=== PATIENT | female | born 1985 | race Caucasian/White ===

== ENCOUNTER 2019-04-10 23:48 | Emergency (ER) | payer MEDICARE ==
[~2019-04-10] VITALS: Ht 188 cm; Wt 118.3 kg
[~2019-04-10 23:48] MED LIST: CETI1TAB2; CPR500T PO; MULT-68; OMEP-10
[2019-04-11 00:31] LABS: BASOPHILS % (AUTO) 0 % (0-10); EOSINOPHILS # (AUTO) 0.1 10^3/uL (0.0-0.3); EOSINOPHILS % (AUTO) 1 % (0-10); HEMATOCRIT 40 % (35-52); HEMOGLOBIN 12.9 G/DL (11.5-16.0); LYMPHOCYTES # (AUTO) 1.7 X 10^3 (1.0-4.0); LYMPHOCYTES % (AUTO) 9 % (12-44); MEAN CORPUSCULAR HEMOGLOBIN 26 PG (25-34); MEAN CORPUSCULAR HGB CONC 32 G/DL (32-36); MEAN CORPUSCULAR VOLUME 82 FL (80-99); MEAN PLATELET VOLUME 11.1 FL (7.4-10.4); MONOCYTES # (AUTO) 1.4 X 10^3 (0.0-1.0); MONOCYTES % (AUTO) 7 % (0-12); NEUTROPHILS # (AUTO) 16.2 X 10^3 (1.8-7.8); NEUTROPHILS % (AUTO) 83 % (42-75); PLATELET COUNT 417 10^3/uL (130-400); RED CELL DISTRIBUTION WIDTH 14.1 % (10.0-14.5); WHITE BLOOD COUNT 19.4 10^3/uL (4.3-11.0)
[2019-04-11 00:40] LABS: BILIRUBIN,URINE NEGATIVE (NEGATIVE); CLARITY,URINE CLEAR; COLOR,URINE YELLOW; GLUCOSE, URINE (UA) NEGATIVE (NEGATIVE); KETONES,URINE NEGATIVE (NEGATIVE); LEUKOCYTE ESTERASE ,URINE NEGATIVE (NEGATIVE); NITRITE,URINE NEGATIVE (NEGATIVE); PROTEIN,URINE NEGATIVE (NEGATIVE)
[2019-04-11 00:44] LABS: ALANINE AMINOTRANSFERASE 12 U/L (0-55); ALBUMIN 3.8 GM/DL (3.2-4.5); ALKALINE PHOSPHATASE 79 U/L (40-136); BILIRUBIN,TOTAL 0.2 MG/DL (0.1-1.0); BUN/CREATININE RATIO 18; CALCIUM 9.5 MG/DL (8.5-10.1); CARBON DIOXIDE 20 MMOL/L (21-32); CHLORIDE 105 MMOL/L (98-107); GFR ESTIMATED > 60; GLUCOSE 122 MG/DL (70-105); POTASSIUM 4.5 MMOL/L (3.6-5.0); SODIUM 138 MMOL/L (135-145); TOTAL PROTEIN 7.7 GM/DL (6.4-8.2)
[2019-04-11 00:46] LABS: BACTERIA,URINE FEW /HPF; WBC,URINE RARE /HPF
[2019-04-11 00:59] LABS: BAND NEUTROPHILS 3 %; EOSINOPHILS % (MANUAL) 2 %; LYMPHOCYTES % (MANUAL) 11 %; MONOCYTES % (MANUAL) 11 %; NEUTROPHILS % (MANUAL) 73 %; RBC MORPH NORMAL
[2019-04-11] MEDS ORDERED: HYOSCYAMINE 0.125 MG (LEVSIN) TAB PO ONE (01:15)
[2019-04-11] MEDS ORDERED: fentaNYL INJECTION 100 MCG/2 ML AMP IVP ONE (01:15)
[2019-04-11] MEDS ORDERED: KETOROLAC 30 MG/ML VIAL IVP ONE (02:45)
[2019-04-11] MEDS ORDERED: HYOS0.1283 SL (02:45)
--- NOTE | 2019-04-11 02:46 | ED Abdominal Pain ---
General Chief Complaint: Abdominal/GI Problems Stated Complaint: RECTAL BLEEDING,ABDOMINAL CRAMPING Nursing Triage Note: rectal bleeding, abdominal cramping, diarrhea. Sepsis Screen: No Definite Risk Source of Information: Patient Exam Limitations: No Limitations History of Present Illness Date Seen by Provider: Apr 10, 2019 Time Seen by Provider: 23:58 Initial Comments This 33-year-old woman presents to the emergency room with lower abdominal cramping and mucousy blood-tinged diarrhea that started around 13:00. The blood is bright red. First she thought she was having a period but then realized the blood was coming from her rectal area by experimenting with a tampon. She has a feeling of rectal fullness and pressure before having bowel movements. Her last solid bowel movement was today with small pellets. This fairly quickly transitioned to soft stools and mucousy small volume diarrhea. She is afebrile. She has history of lupus, IBS, and anemia. She has had colonoscopies in the past in her early 20s but states there was no definitive diagnosis. Allergies and Home Medications Allergies Coded Allergies: Sulfa (Sulfonamide Antibiotics) (Verified Allergy, Unknown, 08/31/06) Iodinated Contrast Media (Verified Adverse Reaction, Mild, Shortness of Breath, 04/11/19) Home Medications Ciprofloxacin 500 Mg Tablet, 1 TAB PO BID Prescribed by: MUNIR KHAN on 07/12/08 1513 Hyoscyamine Sulfate 0.125 Mg Tab.subl, 0.125 MG SL Q4H PRN for CRAMPS Prescribed by: ANALILIA MAJANO on 04/11/19 0245 Patient Home Medication List Home Medication List Reviewed: Yes Review of Systems Review of Systems Constitutional: no symptoms reported EENTM: No Symptoms Reported Respiratory: No Symptoms Reported Cardiovascular: No Symptoms Reported Gastrointestinal: See HPI Genitourinary: No Symptoms Reported Musculoskeletal: no symptoms reported Skin: no symptoms reported Psychiatric/Neurological: No Symptoms Reported Endocrine: No Symptoms Reported Hematologic/Lymphatic: See HPI Past Jugjhfn-Xnccrp-Zyvbsl Hx Past Med/Social Hx: Reviewed Nursing Past Med/Soc Hx Patient Social History Alcohol Use: Denies Use Recreational Drug Use: No Smoking Status: Never a Smoker 2nd Hand Smoke Exposure: No Recent Foreign Travel: No Contact w/Someone Who Travel: No Recent Infectious Disease Expo: No Recent Hopitalizations: No Physical Abuse: No Sexual Abuse: No Mistreated: No Fear: No Immunizations Up To Date Tetanus Booster (TDap): Unknown Seasonal Allergies Seasonal Allergies: Yes Past Medical History Surgeries: No Respiratory: No Cardiac: Yes High Cholesterol, Hypertension Neurological: No : No Reproductive Disorders: No Genitourinary: No Gastrointestinal: Yes Gastroesophageal Reflux, Irritable Bowel Musculoskeletal: Yes Chronic Back Pain Endocrine: Yes Hypothyroidsim, Lupus (SLE) HEENT: No Psychosocial: Yes Anxiety Integumentary: Yes (skin lesions) Blood Disorders: Yes (ITP AT AGE 9, Anemia) Physical Exam Vital Signs Vital Signs - First Documented 04/10/19 23:55 Temp 36.2 Pulse 93 Resp 18 B/P (MAP) 149/93 (111) Pulse Ox 97 O2 Delivery Room Air Capillary Refill : Less Than 3 Seconds Height/Weight/BMI Height: '" Weight: lbs. oz. 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, no motor/sensory deficits, alert, normal mood/affect, oriented x 3 Skin: normal color, warm/dry Progress/Results/Core Measures Results/Orders Lab Results Laboratory Tests Test 04/11/19 00:05 04/11/19 00:30 Range/Units White Blood Count 19.4 H 4.3-11.0 10^3/uL Red Blood Count 4.88 4.35-5.85 10^6/uL Hemoglobin 12.9 11.5-16.0 G/DL Hematocrit 40 35-52 % Mean Corpuscular Volume 82 80-99 FL Mean Corpuscular Hemoglobin 26 25-34 PG Mean Corpuscular Hemoglobin Concent 32 32-36 G/DL Red Cell Distribution Width 14.1 10.0-14.5 % Platelet Count 417 H 130-400 10^3/uL Mean Platelet Volume 11.1 H 7.4-10.4 FL Neutrophils (%) (Auto) 83 H 42-75 % Lymphocytes (%) (Auto) 9 L 12-44 % Monocytes (%) (Auto) 7 0-12 % Eosinophils (%) (Auto) 1 0-10 % Basophils (%) (Auto) 0 0-10 % Neutrophils # (Auto) 16.2 H 1.8-7.8 X 10^3 Lymphocytes # (Auto) 1.7 1.0-4.0 X 10^3 Monocytes # (Auto) 1.4 H 0.0-1.0 X 10^3 Eosinophils # (Auto) 0.1 0.0-0.3 10^3/uL Basophils # (Auto) 0.0 0.0-0.1 10^3/uL Neutrophils % (Manual) 73 % Lymphocytes % (Manual) 11 % Monocytes % (Manual) 11 % Eosinophils % (Manual) 2 % Band Neutrophils 3 % Blood Morphology Comment NORMAL Sodium Level 138 135-145 MMOL/L Potassium Level 4.5 3.6-5.0 MMOL/L Chloride Level 105 98-107 MMOL/L Carbon Dioxide Level 20 L 21-32 MMOL/L Anion Gap 13 5-14 MMOL/L Blood Urea Nitrogen 14 7-18 MG/DL Creatinine 0.80 0.60-1.30 MG/DL Estimat Glomerular Filtration Rate > 60 BUN/Creatinine Ratio 18 Glucose Level 122 H 70-105 MG/DL Calcium Level 9.5 8.5-10.1 MG/DL Corrected Calcium 9.7 8.5-10.1 MG/DL Total Bilirubin 0.2 0.1-1.0 MG/DL Aspartate Amino Transf (AST/SGOT) 15 5-34 U/L Alanine Aminotransferase (ALT/SGPT) 12 0-55 U/L Alkaline Phosphatase 79 40-136 U/L C-Reactive Protein High Sensitivity 1.33 H 0.00-0.50 MG/DL Total Protein 7.7 6.4-8.2 GM/DL Albumin 3.8 3.2-4.5 GM/DL Serum Test, Qualitative NEGATIVE NEGATIVE Urine Color YELLOW Urine Clarity CLEAR Urine pH 6.0 5-9 Urine Specific [place] >=1.030 1.016-1.022 Urine Protein NEGATIVE NEGATIVE Urine Glucose (UA) NEGATIVE NEGATIVE Urine Ketones NEGATIVE NEGATIVE Urine Nitrite NEGATIVE NEGATIVE Urine Bilirubin NEGATIVE NEGATIVE Urine Urobilinogen 0.2 < = 1.0 MG/DL Urine Leukocyte Esterase NEGATIVE NEGATIVE Urine RBC (Auto) 1+ H NEGATIVE Urine RBC 2-5 H /HPF Urine WBC RARE /HPF Urine Squamous Epithelial Cells 5-10 /HPF Urine Crystals NONE /LPF Urine Bacteria FEW H /HPF Urine Casts NONE /LPF Urine Mucus MODERATE H /LPF Urine Culture Indicated NO My Orders Orders - ANALILIA CURTIS MD Cbc With Automated Diff (04/11/19 00:21) Comprehensive Metabolic Panel (04/11/19 00:21) Hs C Reactive Protein (04/11/19 00:21) Hcg,Qualitative Serum (04/11/19 00:21) Ua Culture If Indicated (04/11/19 00:21) Ed Iv/Invasive Line Start (04/11/19 00:21) Fecal Occult Bedside (04/11/19 00:21) Manual Differential (04/11/19 00:05) Hyoscyamine Sl Tablet (Levsin Sl Tablet) (04/11/19 01:15) Fentanyl Injection (Sublimaze Injection (04/11/19 01:15) Ct Abdomen/Pelvis Wo (04/11/19 01:32) Ketorolac Injection (Toradol Injection) (04/11/19 02:45) Medications Given in ED Current Medications Medications Dose Ordered Sig/Jesus Route Start Time Stop Time Status Last Admin Dose Admin Fentanyl Citrate 50 mcg ONCE ONCE IVP 04/11/19 01:15 04/11/19 01:16 DC 04/11/19 01:19 50 MCG Hyoscyamine Sulfate 0.25 mg ONCE ONCE PO 04/11/19 01:15 04/11/19 01:16 DC 04/11/19 01:19 0.25 MG Ketorolac Tromethamine 15 mg ONCE ONCE IVP 04/11/19 02:45 04/11/19 02:46 DC 04/11/19 02:46 15 MG Vital Signs/I&O 04/10/19 04/11/19 23:55 02:48 Temp 36.2 36.3 Pulse 93 75 Resp 18 16 B/P (MAP) 149/93 (111) 125/81 (111) Pulse Ox 97 98 O2 Delivery Room Air Room Air Blood Pressure Mean: 111 Progress Progress Note : Progress Note Revealed a significant leukocytosis. Given patient's pain and history of SLE, CT was offered for further evaluation. Patient elected to proceed with CT. This was performed without contrast due to history of adverse reaction to contrast. No significant acute abnormalities were identified. Patient's Hemoccult testing was positive by LILIAM. Pain was treated with fentanyl. Crampi ng was treated with Levsin. She had some residual pain that was treated with Toradol. See discharge instructions for further discussion. Departure Impression Primary Impression: Abdominal pain Qualified Codes: R10.30 - Lower abdominal pain, unspecified Additional Impressions: Abdominal cramping Hematochezia Leukocytosis Qualified Codes: D72.829 - Elevated white blood cell count, unspecified Disposition: HOME, SELF-CARE Condition: Improved Departure-Patient Inst. Decision time for Depature: 02:42 Referrals: IVET ARGUELLO DO (PCP) Primary Care Physician Patient Instructions: Acute Abdomen (Belly Pain), Adult (DC), Bloody Stools, CLEAR LIQUID DIET ADULT/CHILD Add. Discharge Instructions: Adhere to a clear liquid diet for the next 24 hours. Then gradually advance your diet with small quantities of bland food as tolerated. Avoid milk products or fatty or greasy foods until symptoms have been resolved for at least 48 hours. Contact your primary care provider this morning to schedule a follow-up appointment. You may need further workup if symptoms persist. This may include endoscopy, repeat blood work, stool cultures, etc. Return to the emergency room if symptoms are worsening or you develop new symptoms such as fever, escalating rectal bleeding, uncontrolled pain, etc. You may take Tylenol (acetaminophen) up to 1000 mg every 6 hours as needed. Add ibuprofen 400 mg every 6 hours as needed sparingly for uncontrolled pain. Take Levsin (hyoscyamine) as prescribed for cramping. All discharge instructions reviewed with patient and/or family. Voiced understanding. Scripts Hyoscyamine Sulfate (Levsin-Sl) 0.125 Mg Tab.subl 0.125 MG SL Q4H PRN for CRAMPS, #10 TAB 0 Refills Prov: ANALILIA CURTIS MD 04/11/19 Copy Copies To 1: IVET ARGUELLO JOSHUA T MD Apr 11, 2019 02:46
[2019-04-11 02:48] VITALS: BP 125/81
--- NOTE | 2019-04-11 07:51 | Diagnostic Imaging Report ---
PROCEDURE: CT abdomen and pelvis without contrast. TECHNIQUE: Multiple contiguous axial images were obtained through the abdomen and pelvis without the use of intravenous contrast. Auto Exposure Controls were utilized during the CT exam to meet ALARA standards for radiation dose reduction. INDICATION: Rectal bleeding, abdominal pain and diarrhea The lung bases are clear. The liver appears normal. The gallbladder is decompressed. Pancreas appears normal. Spleen is not enlarged. Adrenals are normal. Kidneys appear normal. Small bowel is not dilated. The appendix is not seen. There is no evidence for appendicitis. Colon is unremarkable. Uterus is present. There are small bilateral ovarian cyst. There is no free fluid. IMPRESSION: Small ovarian cyst. No acute abnormality seen in the abdomen or pelvis I agree with preliminary interpretation. Dictated by: Dictated on workstation # [id number]
== END 2019-04-11 02:51 | disposition home or self-care (01) ==
LOC: EDUNIT# 23:48 → ER 23:51
DX: R10.30 Lower abdominal pain, unspecified (principal); K92.1 Melena; D72.829 Elevated white blood cell count, unspecified; Z88.2 Allergy status to sulfonamides; Z91.041 Radiographic dye allergy status
CPT/HCPCS: 36415; 74176; 80053; 81000; 82274; 84703; 85007; 85027; 86141; 96374; 96375

== ENCOUNTER → 2019-04-12 | Outpatient (CLI) | payer MEDICARE ==
[~2019-04-12] MED LIST changes: +HYOS0.1283 SL
[2019-04-12 13:20] LABS: BASOPHILS % (AUTO) 0 % (0-10); EOSINOPHILS # (AUTO) 0.2 10^3/uL (0.0-0.3); EOSINOPHILS % (AUTO) 2 % (0-10); HEMATOCRIT 39 % (35-52); HEMOGLOBIN 12.2 G/DL (11.5-16.0); LYMPHOCYTES # (AUTO) 2.7 X 10^3 (1.0-4.0); LYMPHOCYTES % (AUTO) 31 % (12-44); MEAN CORPUSCULAR HEMOGLOBIN 26 PG (25-34); MEAN CORPUSCULAR HGB CONC 31 G/DL (32-36); MEAN CORPUSCULAR VOLUME 84 FL (80-99); MEAN PLATELET VOLUME 11.2 FL (7.4-10.4); MONOCYTES # (AUTO) 0.6 X 10^3 (0.0-1.0); MONOCYTES % (AUTO) 7 % (0-12); NEUTROPHILS # (AUTO) 5.2 X 10^3 (1.8-7.8); NEUTROPHILS % (AUTO) 59 % (42-75); PLATELET COUNT 284 10^3/uL (130-400); RED CELL DISTRIBUTION WIDTH 13.9 % (10.0-14.5); WHITE BLOOD COUNT 8.7 10^3/uL (4.3-11.0)
== END ==
LOC: LAB 13:03
PROVIDERS: ATTEND Family Medicine
DX: D72.829 Elevated white blood cell count, unspecified (principal)
CPT/HCPCS: 36415; 85025

== ENCOUNTER 2021-11-21 19:17 | Emergency (ER) | payer MEDICARE, OTHER ==
[~2021-11-21] VITALS: Ht 187.9 cm; Wt 126.8 kg
--- NOTE | 2021-11-21 19:30 | ED Abdominal Pain ---
General Stated Complaint: L SIDE ABD SWELLING/PAIN History of Present Illness Date Seen by Provider: Nov 21, 2021 Time Seen by Provider: 19:25 Initial Comments Patient reports that she has been having left sided upper abdominal pain for the past month. States that she took a nap and woke up this evening and the pain is worse. Took Aleve about hour and half prior to arrival. Does have lupus and is currently in the process of being worked up for anemia. Denies chest pain or shortness of breath. Last period was the of last month. Denies chance or concern for . Last bowel movement was this morning and reports that it is normal. Denies diarrhea, nausea, or vomiting. Timing/Duration: Getting Worse (past month) Severity/Quality: Moderate Location: [facility] Radiation: No Radiation Activities at Onset: None Modifying Factors: Worsens With Palpation; Improves With Resting Associated Symptoms: No Chest Pain, No Fever/Chills, No Fatigue, No Headache, No Heartburn, No Nausea/Vomiting; Swelling/Mass in Abdomen Allergies and Home Medications Allergies Coded Allergies: Sulfa (Sulfonamide Antibiotics) (Verified Allergy, Unknown, 08/31/06) Iodinated Contrast Media (Verified Adverse Reaction, Mild, Shortness of Breath, 04/11/19) Patient Home Medication List Home Medication List Reviewed: Yes Ciprofloxacin (Cipro) 500 Mg Tablet, 1 TAB PO BID Prescribed by: MUNIR KHAN on 07/12/08 1513 Hyoscyamine Sulfate (Levsin-Sl) 0.125 Mg Tab.subl, 0.125 MG SL Q4H PRN for CRAMPS Prescribed by: ANALILIA MAJANO on 04/11/19 0245 Multivitamins W-Iron (Multiple Vitamins With Iron) 1 Tab Tablet, (Reported) Entered as Reported by: LADONNA MEDINA on 07/12/08 1405 Omeprazole (Prilosec 20 Mg) 20 Mg Capsule., (Reported) Entered as Reported by: LADONNA MEDINA on 07/12/08 1405 P-Ephed Hcl/Cetirizine Hcl (Zyrtec-D Tablet) 1 Tab Tab, (Reported) Entered as Reported by: LADONNA MEDINA on 07/12/08 1404 Review of Systems Review of Systems Constitutional: No dizziness, No fever, No weakness EENTM: No Symptoms Reported Respiratory: No Symptoms Reported Cardiovascular: No Symptoms Reported Gastrointestinal: Abdominal Pain (left upper quadrant); Denies Constipated, Denies Diarrhea, Denies Nausea, Denies Vomiting Genitourinary: Denies Burning, Denies Frequency, Denies Pain, Denies Urgency Musculoskeletal: no symptoms reported Skin: no symptoms reported All Other Systems Reviewed Negative Unless Noted: Yes Past Hjsrews-Fsqtlx-Ulyynh Hx Immunizations Up To Date Tetanus Booster (TDap): Unknown Seasonal Allergies Seasonal Allergies: Yes Past Medical History Surgeries: No Respiratory: No Cardiac: Yes High Cholesterol, Hypertension Neurological: No Reproductive Disorders: No Genitourinary: No Gastrointestinal: Yes Gastroesophageal Reflux, Irritable Bowel Musculoskeletal: Yes Chronic Back Pain Endocrine: Yes Hypothyroidsim, Lupus HEENT: No Psychosocial: Yes Anxiety Integumentary: Yes (skin lesions) Blood Disorders: Yes (ITP AT AGE 9, Anemia) Family Medical History Reviewed Nursing Family Hx Physical Exam Vital Signs Vital Signs - First Documented 11/21/21 19:23 Temp 36.0 Pulse 91 Resp 20 B/P (MAP) 184/115 (138) Pulse Ox 100 O2 Delivery Room Air Capillary Refill : Height/Weight/BMI Height: '" Weight: lbs. oz. kg; 33.00 BMI Method: General Appearance: WD/WN, no apparent distress Neck: non-tender, full range of motion, supple, normal inspection Respiratory: chest non-tender, lungs clear, normal breath sounds, no respiratory distress, no accessory muscle use Cardiovascular: regular rate, rhythm, no edema Gastrointestinal: normal bowel sounds, soft, no organomegaly, no pulsatile mass; No distended, No guarding, No rebound; tenderness (left upper quadrant); No hernia, No mass Extremities: normal range of motion, non-tender, normal inspection Neurologic/Psychiatric: alert, normal mood/affect, oriented x 3 Skin: normal color, warm/dry Progress/Results/Core Measures Results/Orders Lab Results Laboratory Tests Test 11/21/21 19:30 11/21/21 19:35 Range/Units White Blood Count 9.9 4.3-11.0 10^3/uL Red Blood Count 4.92 3.80-5.11 10^6/uL Hemoglobin 11.3 L 11.5-16.0 g/dL Hematocrit 37 35-52 % Mean Corpuscular Volume 76 L 80-99 fL Mean Corpuscular Hemoglobin 23 L 25-34 pg Mean Corpuscular Hemoglobin Concent 30 L 32-36 g/dL Red Cell Distribution Width 17.2 H 10.0-14.5 % Platelet Count 395 130-400 10^3/uL Mean Platelet Volume 11.1 9.0-12.2 fL Immature Granulocyte % (Auto) 0 % Neutrophils (%) (Auto) 70 42-75 % Lymphocytes (%) (Auto) 20 12-44 % Monocytes (%) (Auto) 7 0-12 % Eosinophils (%) (Auto) 2 0-10 % Basophils (%) (Auto) 1 0-10 % Neutrophils # (Auto) 7.0 1.8-7.8 10^3/uL Lymphocytes # (Auto) 2.0 1.0-4.0 10^3/uL Monocytes # (Auto) 0.7 0.0-1.0 10^3/uL Eosinophils # (Auto) 0.2 0.0-0.3 10^3/uL Basophils # (Auto) 0.1 0.0-0.1 10^3/uL Immature Granulocyte # (Auto) 0.0 0.0-0.1 10^3/uL Sodium Level 138 135-145 MMOL/L Potassium Level 4.1 3.6-5.0 MMOL/L Chloride Level 105 98-107 MMOL/L Carbon Dioxide Level 21 21-32 MMOL/L Anion Gap 12 5-14 MMOL/L Blood Urea Nitrogen 8 7-18 MG/DL Creatinine 0.78 0.60-1.30 MG/DL Estimat Glomerular Filtration Rate 102 BUN/Creatinine Ratio 10 Glucose Level 111 H 70-105 MG/DL Calcium Level 9.3 8.5-10.1 MG/DL Corrected Calcium 9.5 8.5-10.1 MG/DL Total Bilirubin 0.2 0.1-1.0 MG/DL Aspartate Amino Transf (AST/SGOT) 15 5-34 U/L Alanine Aminotransferase (ALT/SGPT) 18 0-55 U/L Alkaline Phosphatase 99 40-136 U/L Total Protein 7.7 6.4-8.2 GM/DL Albumin 3.8 3.2-4.5 GM/DL Lipase 28 8-78 U/L Serum Test, Qualitative NEGATIVE NEGATIVE Urine Color YELLOW Urine Clarity SL CLOUDY Urine pH 6.0 5-9 Urine Specific [place] 1.025 H 1.016-1.022 Urine Protein NEGATIVE NEGATIVE Urine Glucose (UA) NEGATIVE NEGATIVE Urine Ketones NEGATIVE NEGATIVE Urine Nitrite NEGATIVE NEGATIVE Urine Bilirubin NEGATIVE NEGATIVE Urine Urobilinogen 0.2 < = 1.0 MG/DL Urine Leukocyte Esterase 1+ H NEGATIVE Urine RBC (Auto) TRACE-I H NEGATIVE Urine RBC 2-5 H /HPF Urine WBC 5-10 H /HPF Urine Squamous Epithelial Cells 2-5 /HPF Urine Crystals NONE /LPF Urine Bacteria LARGE H /HPF Urine Casts NONE /LPF Urine Mucus MODERATE H /LPF Urine Culture Indicated YES My Orders Orders - HARINI BROWN APRN Comprehensive Metabolic Panel (11/21/21 19:30) Lipase (11/21/21 19:30) Ua Culture If Indicated (11/21/21 19:30) Hcg,Qualitative Serum (11/21/21 19:30) Acute Abd Series (11/21/21 19:30) Cbc With Automated Diff (11/21/21 19:30) Urine Culture (11/21/21 19:35) Vital Signs/I&O 11/21/21 19:23 Temp 36.0 Pulse 91 Resp 20 B/P (MAP) 184/115 (138) Pulse Ox 100 O2 Delivery Room Air Progress Progress Note : Progress Note Patient presents to the emergency department for left upper quadrant abdominal pain that started about a month ago and has gotten worse today. History of lupus and anemia. Took Aleve at home without much change in symptoms. Will obtain labs and obtain obstructive series. 2031: Discussed labs and XR with patient. Will start on antibiotic for UTI. Home instructions reviewed with patient along with reasons to return to the ER. She verbalized understanding. Diagnostic Imaging Diagonstic Imaging: Xray Plain Films/CT/US/NM/MRI: chest, abdomen Comments NAME: ACOSTAMay MED REC#: [id number] PT STATUS: REG ER : 1985 PHYSICIAN: HARINI BROWN APRN ADMIT DATE: 11/21/21/ER Draft Date of Exam:11/21/21 ACUTE ABD SERIES HISTORY: Left upper quadrant abdominal pain. COMPARISON: CT from 04/11/2019. TECHNIQUE: Frontal view of the chest. Supine and upright frontal views of the abdomen. FINDINGS: Lung volumes are normal. No consolidation is seen. There is no pleural effusion or pneumothorax. The cardiac silhouette is normal in size. No distended loops of small bowel are seen in the abdomen. Overall stool burden appears low. No large collection of free air is seen. IMPRESSION: 1. No bowel obstruction or large collection of free air. 2. No acute pulmonary abnormality. Dictated on workstation # [id number] Dict: 11/21/211947 Trans: 11/21/211950 [facility] [id number] Interpreted by: LUIS FELIPE KRISHNAMURTHY MD Electronically signed by: Departure Impression Primary Impression: Urinary tract infection Qualified Codes: N30.01 - Acute cystitis with hematuria Disposition: HOME, SELF-CARE Condition: Stable Departure-Patient Inst. Decision time for Depature: 20:35 Referrals: ROME HARRELL APRN (PCP/Family) Primary Care Physician Patient Instructions: Urinary Tract Infection, Adult (DC) Add. Discharge Instructions: 1. Home and rest. 2. Push fluids. 3. Alternate Tylenol/Ibuprofen as needed for pain. 4. Follow up with PCP as needed. 5. Start Cephalexin and take as directed until finished. 6. Consider using heating pad to abdomen as needed. 7. Return here if worse or concerns. Scripts Cephalexin (Cephalexin) 500 Mg Capsule 500 MG PO BID for 7 Days, #14 CAP 0 Refills Prov: HARINI BROWN APRN 11/21/21 HARINI BROWN APRN Nov 21, 2021 19:30
[2021-11-21 19:39] LABS: BILIRUBIN,URINE NEGATIVE (NEGATIVE); CLARITY,URINE SL CLOUDY; COLOR,URINE YELLOW; GLUCOSE, URINE (UA) NEGATIVE (NEGATIVE); KETONES,URINE NEGATIVE (NEGATIVE); LEUKOCYTE ESTERASE ,URINE 1+ (NEGATIVE); NITRITE,URINE NEGATIVE (NEGATIVE); PROTEIN,URINE NEGATIVE (NEGATIVE)
[2021-11-21 19:45] LABS: BASOPHILS # (AUTO) 0.1 10^3/uL (0.0-0.1); BASOPHILS % (AUTO) 1 % (0-10); EOSINOPHILS # (AUTO) 0.2 10^3/uL (0.0-0.3); EOSINOPHILS % (AUTO) 2 % (0-10); HEMATOCRIT 37 % (35-52); HEMOGLOBIN 11.3 g/dL (11.5-16.0); LYMPHOCYTES % (AUTO) 20 % (12-44); MEAN CORPUSCULAR HEMOGLOBIN 23 pg (25-34); MEAN CORPUSCULAR HGB CONC 30 g/dL (32-36); MEAN CORPUSCULAR VOLUME 76 fL (80-99); MEAN PLATELET VOLUME 11.1 fL (9.0-12.2); MONOCYTES # (AUTO) 0.7 10^3/uL (0.0-1.0); MONOCYTES % (AUTO) 7 % (0-12); NEUTROPHILS % (AUTO) 70 % (42-75); PLATELET COUNT 395 10^3/uL (130-400); WHITE BLOOD COUNT 9.9 10^3/uL (4.3-11.0)
[2021-11-21 19:52] LABS: BACTERIA,URINE LARGE /HPF
--- NOTE | 2021-11-21 19:52 | Diagnostic Imaging Report ---
HISTORY: Left upper quadrant abdominal pain. COMPARISON: CT from 04/11/2019. TECHNIQUE: Frontal view of the chest. Supine and upright frontal views of the abdomen. FINDINGS: Lung volumes are normal. No consolidation is seen. There is no pleural effusion or pneumothorax. The cardiac silhouette is normal in size. No distended loops of small bowel are seen in the abdomen. Overall stool burden appears low. No large collection of free air is seen. IMPRESSION: 1. No bowel obstruction or large collection of free air. 2. No acute pulmonary abnormality. Dictated by: Dictated on workstation # [id number]
[2021-11-21 19:57] LABS: ALBUMIN 3.8 GM/DL (3.2-4.5); BILIRUBIN,TOTAL 0.2 MG/DL (0.1-1.0); CALCIUM 9.3 MG/DL (8.5-10.1); CREATININE SERUM 0.78 MG/DL (0.60-1.30); TOTAL PROTEIN 7.7 GM/DL (6.4-8.2)
[2021-11-21 20:18] LABS: POTASSIUM 4.1 MMOL/L (3.6-5.0)
[2021-11-21] MEDS ORDERED: CEPH500C PO (20:37)
[2021-11-21 20:38] VITALS: BP 137/81
== END 2021-11-21 20:42 | disposition home or self-care (01) ==
LOC: EDUNIT# 19:17 → ER 19:20
DX: N39.0 Urinary tract infection, site not specified (principal)
CPT/HCPCS: 36415; 74022; 80053; 81000; 83690; 84703; 85025; 87088

== ENCOUNTER → 2022-12-29 | Outpatient (CLI) | payer MEDICARE, OTHER ==
[~2022-12-29] MED LIST changes: +CEPH500C PO
[2022-12-29 16:35] LABS: BASOPHILS % (AUTO) 1 % (0-10); EOSINOPHILS % (AUTO) 1 % (0-10); HEMATOCRIT 41 % (35-52); HEMOGLOBIN 13.7 g/dL (11.5-16.0); LYMPHOCYTES # (AUTO) 1.4 10^3/uL (1.0-4.0); LYMPHOCYTES % (AUTO) 27 % (12-44); MEAN CORPUSCULAR HEMOGLOBIN 31 pg (25-34); MEAN CORPUSCULAR HGB CONC 34 g/dL (32-36); MEAN CORPUSCULAR VOLUME 91 fL (80-99); MEAN PLATELET VOLUME 11.7 fL (9.0-12.2); MONOCYTES # (AUTO) 0.4 10^3/uL (0.0-1.0); MONOCYTES % (AUTO) 8 % (0-12); NEUTROPHILS # (AUTO) 3.2 10^3/uL (1.8-7.8); NEUTROPHILS % (AUTO) 64 % (42-75); PLATELET COUNT 232 10^3/uL (130-400); WHITE BLOOD COUNT 5.1 10^3/uL (4.3-11.0)
[2022-12-29 16:43] LABS: ALBUMIN 3.9 GM/DL (3.2-4.5); POTASSIUM 3.7 MMOL/L (3.6-5.0)
[2022-12-29 16:44] LABS: CALCIUM 9.1 MG/DL (8.5-10.1)
[2022-12-29 16:46] LABS: TOTAL PROTEIN 7.4 GM/DL (6.4-8.2)
[2022-12-29 16:47] LABS: BILIRUBIN,TOTAL 0.4 MG/DL (0.1-1.0)
[2022-12-29 16:49] LABS: CREATININE SERUM 0.76 MG/DL (0.60-1.30)
[2022-12-29 16:55] LABS: URINE CREATININE FOR RATIO 327 MG/DL (30-125)
[2022-12-29 16:56] LABS: URINE PROTEIN FOR RATIO ONLY 20 MG/DL (6-12)
[2022-12-29 17:00] LABS: CLARITY,URINE CLOUDY; COLOR,URINE ORANGE; GLUCOSE, URINE (UA) NEGATIVE (NEGATIVE); PROTEIN,URINE 2+ (NEGATIVE)
[2022-12-29 17:01] LABS: BACTERIA,URINE LARGE /HPF; BILIRUBIN,URINE 1+ (NEGATIVE); CALCIUM OXALATE CRYSTALS,UR RARE /LPF; KETONES,URINE TRACE (NEGATIVE); LEUKOCYTE ESTERASE ,URINE TRACE (NEGATIVE); NITRITE,URINE NEGATIVE (NEGATIVE); WBC,URINE 25-50 /HPF
[2022-12-29 17:09] LABS: ERYTHROCYTE SEDIMENTATION RATE 13 MM/HR (0-20)
[2022-12-29 17:12] LABS: FREE T4 (FREE THYROXINE) 1.09 NG/DL (0.70-1.48)
== END ==
LOC: LAB 15:56
PROVIDERS: ATTEND Internal Medicine Rheumatology
DX: M32.10 Systemic lupus erythematosus, organ or system involvement unspecified (principal)
CPT/HCPCS: 36415; 80053; 81000; 82306; 82570; 84156; 84439; 84443; 85025; 85652; 86141; 86160; 86225; 87077; 87088; 87186